=== PATIENT | female | born 1945 | race Caucasian/White ===

== ENCOUNTER → 2016-03-04 | Outpatient (CLI) | payer MEDICARE, OTHER ==
[2015-11-04 10:15] VITALS: BP 135/57
[~2016-03-04] MED LIST: LEVO100T5 PO; METF500T4 PO; THYR30TA PO
[2016-03-04 09:08] LABS: ALBUMIN 3.6 g/dL (3.4-5.0); DIRECT BILIRUBIN 0.2 mg/dL (0.0-0.2); TOTAL BILIRUBIN 0.4 mg/dL (0.2-1.0); TOTAL PROTEIN 7.2 g/dL (6.4-8.2)
== END | disposition home or self-care (01) ==
LOC: LAB 08:03
PROVIDERS: ATTEND Internal Medicine Cardiovascular Disease
DX: E78.2 Mixed hyperlipidemia (principal)
CPT/HCPCS: 36415; 80061; 80076

== ENCOUNTER → 2016-07-09 | Outpatient (CLI) | payer MEDICARE, OTHER ==
[2015-11-04 10:15] VITALS: BP 135/57
[2016-07-09 08:11] LABS: ALBUMIN 3.5 g/dL (3.4-5.0); DIRECT BILIRUBIN 0.1 mg/dL (0.0-0.2); TOTAL BILIRUBIN 0.4 mg/dL (0.2-1.0); TOTAL PROTEIN 7.3 g/dL (6.4-8.2)
== END | disposition home or self-care (01) ==
LOC: LAB 07:30
PROVIDERS: ATTEND Internal Medicine Cardiovascular Disease
DX: E78.2 Mixed hyperlipidemia (principal)
CPT/HCPCS: 36415; 80061; 80076

== ENCOUNTER → 2016-07-30 | Outpatient (CLI) | payer MEDICARE, OTHER ==
[2015-11-04 10:15] VITALS: BP 135/57
[2016-07-30 09:13] LABS: BASO # 0.1 x10^3/uL (0.0-0.2); BASO % 1 % (0-3); EOS # 0.2 x10^3/uL (0.0-0.7); EOS % 3 % (0-3); HEMATOCRIT 48.3 % (36.0-47.0); HEMOGLOBIN 16.2 g/dL (12.0-15.5); LYMPH # 3.2 x10^3/uL (1.0-4.8); LYMPH % 47 % (24-48); MEAN CORPUSCULAR HEMOGLOBIN 28 pg (25-35); MEAN CORPUSCULAR HGB CONC 33 g/dL (31-37); MEAN CORPUSCULAR VOLUME 82 fL (79-100); MONO # 0.5 x10^3/uL (0.0-1.1); MONO % 7 % (0-9); NEUT # 2.8 x10^3uL (1.8-7.7); NEUT % 42 % (31-73); PLATELET COUNT 286 x10^3/uL (140-400); RED BLOOD COUNT 5.87 x10^6/uL (3.50-5.40); RED CELL DISTRIBUTION WIDTH 14.2 % (11.5-14.5); WHITE BLOOD COUNT 6.7 x10^3/uL (4.0-11.0)
[2016-07-30 09:33] LABS: ALBUMIN 3.9 g/dL (3.4-5.0); CALCIUM 9.3 mg/dL (8.5-10.1); CREATININE 0.8 mg/dL (0.6-1.0); GFR 71.3; POTASSIUM 4.2 mmol/L (3.5-5.1); TOTAL BILIRUBIN 0.6 mg/dL (0.2-1.0); TOTAL PROTEIN 7.8 g/dL (6.4-8.2)
[2016-07-30 18:07] LABS: DHEA SO4 54.1 ug/dL (20.4-186.6); FSH 21.8 mIU/mL (.); PROGESTERONE 1.5 ng/mL (.); TESTOSTERONE TOTAL 137 ng/dL (3-41)
[2016-07-30 21:08] LABS: FREE T4 1.5 ng/dL (0.76-1.46); THYROID STIM HORMONE (TSH) 0.014 uIU/mL (0.358-3.740)
== END | disposition home or self-care (01) ==
LOC: LAB 07:37
PROVIDERS: ATTEND Family Medicine
DX: E28.39 Other primary ovarian failure (principal); E34.9 Endocrine disorder, unspecified; E03.9 Hypothyroidism, unspecified; E78.5 Hyperlipidemia, unspecified; N95.1 Menopausal and female climacteric states; E27.40 Unspecified adrenocortical insufficiency; E55.9 Vitamin D deficiency, unspecified; E53.8 Deficiency of other specified B group vitamins; R53.83 Other fatigue; Z90.710 Acquired absence of both cervix and uterus
CPT/HCPCS: 36415; 80053; 80061; 82306; 82627; 82670; 83001; 84144; 84403; 84439; 84443; 84481; 85027

== ENCOUNTER 2016-09-03 14:13 | Emergency (ER) | payer MEDICARE, OTHER ==
[2016-09-03 14:20] VITALS: BP 154/70
--- NOTE | 2016-09-03 15:27 | RAD ---
CT of the head without contrast, 09/03/2016: History: Fall, closed head injury The ventricles are within normal limits in size. There is no shift of the midline structures. There is no evidence of acute intracranial hemorrhage or mass effect. There is a small scalp hematoma in the right frontal region. No underlying fracture is identified. IMPRESSION: No acute intracranial abnormality is detected. PQRS Compliance Statement: One or more of the following individualized dose reduction techniques were utilized for this examination: 1. Automated exposure control 2. Adjustment of the mA and/or kV according to patient size 3. Use of iterative reconstruction technique
--- NOTE | 2016-09-03 15:41 | PHYS DOC ---
Past History Past Medical History: Hypothyroid Past Surgical History: No Surgical History Alcohol Use: Occasionally Drug Use: None Adult General Chief Complaint Chief Complaint: MECHANICAL FALL HPI HPI Patient is a 70 year old female who presents with complaint of head injury. Patient states that she slipped and fell in front of her home on concrete immediately prior to arrival. Patient denied any lightheadedness or dizziness that caused her to fall. Patient states that she did not lose consciousness and was able to ambulate after her fall. Patient complains of throbbing localized pain to the right side of her forehead were she struck her head on the ground. Patient also states that she has abrasions to both hands and knees. Patient denies any global headache, nausea, and patient reportedly had no episodes of confusion or memory loss. The patient states that she is not currently on blood thinners but has been off of Xarelto therapy for more than a week. Patient denies any other injuries at this time. Patient rates her discomfort as 4 out of 10. Review of Systems Review of Systems Constitutional: Denies fever or chills [] Eyes: Denies change in visual acuity, redness, or eye pain [] HENT: Head injury, denies nasal congestion or sore throat [] Respiratory: Denies cough or shortness of breath [] Cardiovascular: No additional information not addressed in HPI [] GI: Denies abdominal pain, nausea, vomiting, bloody stools or diarrhea [] : Denies dysuria or hematuria [] Musculoskeletal: Abrasions to bilateral hands and knees [] Integument: Denies rash or skin lesions [] Neurologic: Denies headache, focal weakness or sensory changes [] Allergies Allergies Allergies Coded Allergies Type Severity Reaction Last Updated Verified doxycycline Allergy Intermediate Unknown 11/03/15 Yes Sulfa (Sulfonamide Antibiotics) Adverse Reaction Intermediate 11/03/15 Yes Physical Exam Physical Exam Constitutional: Alert, afebrile, no acute distress. [] HENT: Normocephalic, 3-1/2 cm right forehead hematoma with overlying abrasion, bilateral external ears normal, oropharynx moist, no oral exudates, nose normal. [] Eyes: PERRLA, EOMI, conjunctiva normal, no discharge. [] Neck: Normal range of motion, no tenderness, supple, no stridor. [] Cardiovascular:Heart rate regular rhythm, no murmur [] Lungs & Thorax: Bilateral breath sounds clear to auscultation [] Abdomen: Bowel sounds normal, soft, no tenderness, no masses, no pulsatile masses. [] Skin: Warm, dry, superficial abrasions to the bilateral palmar surfaces and extensor surface of knees bilaterally. [] Back: No tenderness, no CVA tenderness. [] Extremities: No tenderness, no cyanosis, no clubbing, ROM intact, no edema. [] Neurologic: Alert and oriented X 3, normal motor function, normal sensory function, no focal deficits noted. [] Current Patient Data Vital Signs Vital Signs Date Time Temp Pulse Resp B/P (MAP) Pulse Ox O2 Delivery O2 Flow Rate FiO2 09/03/16 14:20 97.8 81 22 95 Room Air EKG EKG Not performed [] Radiology/Procedures Radiology/Procedures [address] [address] IMAGING REPORT Signed PATIENT: HINA CARNES V ACCOUNT: [id number] : 1945 LOCATION: ER AGE: 70 SEX: F EXAM STATUS: REG ER ORD. PHYSICIAN: ANDREY SHELTON MD REASON: fall, closed head injury PROCEDURE: CT HEAD WO CONTRAST CT of the head without contrast, 09/03/2016: History: Fall, closed head injury The ventricles are within normal limits in size. There is no shift of the midline structures. There is no evidence of acute intracranial hemorrhage or mass effect. There is a small scalp hematoma in the right frontal region. No underlying fracture is identified. IMPRESSION: No acute intracranial abnormality is detected. PQRS Compliance Statement: One or more of the following individualized dose reduction techniques were utilized for this examination: 1. Automated exposure control 2. Adjustment of the mA and/or kV according to patient size 3. Use of iterative reconstruction technique DICTATED AND SIGNED BY: MAYANK HAYDEN MD DATE: 09/03/16 1523 CC: ANDREY SHELTON MD; LETICIA RAYA MD ~ [] Course & Med Decision Making Course & Med Decision Making Pertinent Labs and Imaging studies reviewed. (See chart for details) Patient's head CT was negative for intracranial bleeding. Advised continued use of cold compresses to reduce swelling on patient's scalp. Recommended use of Tylenol as needed for discomfort. Advised follow-up with primary doctor in 5 days for reevaluation and return to emergency department for any worsening symptoms. Patient voiced understanding and in agreement with treatment plan. Dragon Disclaimer Dragon Disclaimer This chart was dictated in whole or in part using Voice Recognition software in a busy, high-work load, and often noisy Emergency Department environment. It may contain unintended and wholly unrecognized errors or omissions. Departure Departure: Impression: Primary Impression: Closed head injury Additional Impression: Multiple abrasions Disposition: HOME, SELF-CARE Condition: IMPROVED Referrals: LETICIA RAYA MD (PCP) Patient Instructions: Head Injury, Adult Additional Instructions: Follow-up in 5 days with primary doctor for reevaluation. Return to emergency department for any worsening symptoms. Problem Qualifiers Primary Impression: Closed head injury Encounter type: initial encounter Qualified Codes: S09.90XA - Unspecified injury of head, initial encounter ANDREY SHELTON MD Sep 03, 2016 15:41
== END 2016-09-03 15:58 | disposition home or self-care (01) ==
LOC: ER 14:13
DX: S09.8XXA Other specified injuries of head, initial encounter (principal); S60.512A Abrasion of left hand, initial encounter; S60.511A Abrasion of right hand, initial encounter; S80.212A Abrasion, left knee, initial encounter; S80.211A Abrasion, right knee, initial encounter; E03.9 Hypothyroidism, unspecified; Z88.2 Allergy status to sulfonamides; Z88.1 Allergy status to other antibiotic agents; W01.198A Fall on same level from slipping, tripping and stumbling with subsequent striking against other object, initial encounter; Y93.89 Activity, other specified; Y99.8 Other external cause status; Y92.89 Other specified places as the place of occurrence of the external cause
CPT/HCPCS: 70450; 99284-25

== ENCOUNTER 2016-10-17 12:12 | Emergency (ER) | payer MEDICARE, OTHER ==
[~2016-10-17] VITALS: Ht 162.6 cm; Wt 70.3 kg
--- NOTE | 2016-10-17 14:20 | RAD ---
CT head without contrast 10/17/2016 Clinical indication: Fall, head contusion. Comparison: CT head 09/03/2016. Technique: Multiple CT images of the head were obtained without contrast according to standard protocol. RS Compliance Statement: One or more of the following individualized dose reduction techniques were utilized for this examination: 1. Automated exposure control 2. Adjustment of the mA and/or kV according to patient size 3. Use of iterative reconstruction technique Findings: Head: Ventricles and subarachnoid spaces are normal in size and configuration. No acute intracranial hemorrhage or extra-axial fluid collection. The mooney-white matter interfaces are maintained. The basal cisterns are patent. No midline shift. There is focal anterior right frontal scalp contusion. Mastoid air cells and visualized paranasal sinuses are well aerated. Impression: Anterior right frontal scalp contusion with no acute intracranial hemorrhage or mass effect.
--- NOTE | 2016-10-17 14:39 | RAD ---
Right shoulder radiograph 3 views 10/17/2016 Clinical indication: Right shoulder pain status post fall. Comparison: None. Findings: No acute fracture or dislocation. Soft tissues are grossly unremarkable. Impression: No acute osseous abnormality.
--- NOTE | 2016-10-17 14:44 | ED.ADGEN ---
Past History Past Medical History: A-Fib, Diabetes, Hypothyroid Past Surgical History: Hysterectomy Alcohol Use: Occasionally Drug Use: None Adult General HPI HPI Patient is a 71-year-old woman, history of type 2 diabetes mellitus, hypertension, hypothyroidism, who presents to the emergency department after mechanical fall. Patient states that she was walking downstairs at her [employer] carrying a large laundry basket when she tripped and fell, striking her left knee, right hand, and face and right forehead against a concrete parking barrier. No neck pain. She states this occurred about an hour prior to arrival. She is complaining of headache located at the spot where she has a contusion, denies any neck pain, any nausea or vomiting, any weakness, numbness, tingling, states she was ambulating on difficulty at the scene, and is not limping. She denies any preceding symptoms, chest pain, shortness breath, no other concerning symptoms. She states she does not take any anticoagulants including aspirin. C-collar placed upon arrival to the emergency department based on mechanism of action and age. Review of Systems Review of Systems Constitutional: Denies fever or chills [] Eyes: Denies change in visual acuity, redness, or eye pain [] HENT: Denies nasal congestion or sore throat [] Respiratory: Denies cough or shortness of breath [] Cardiovascular: No additional information not addressed in HPI [] GI: Denies abdominal pain, nausea, vomiting, bloody stools or diarrhea [] : Denies dysuria or hematuria [] Musculoskeletal: Denies back pain or joint pain [] Integument: Denies rash or skin lesions [] Neurologic: Denies focal weakness or sensory changes, complaining of headache and pain or she has a contusion on the right forehead. [] Endocrine: Denies polyuria or polydipsia [] Allergies Allergies Allergies Coded Allergies Type Severity Reaction Last Updated Verified doxycycline Allergy Intermediate Unknown 11/03/15 Yes Sulfa (Sulfonamide Antibiotics) Adverse Reaction Intermediate 11/03/15 Yes Physical Exam Physical Exam Constitutional: Well developed, well nourished, no acute distress, non-toxic appearance. [] HENT: Normocephalic, patient with contusion and abrasion noted over the right upper forehead, no laceration. Bilateral external ears normal, no hemotympanum , no septal hematoma, patient has small abrasion noted to the left upper lip, with normal dentition, without evidence of dental looseness dental trauma, bite test is normal, oropharynx moist, no oral exudates, nose normal. [] Eyes: PERRLA, EOMI, conjunctiva normal, no discharge. [] Neck: Normal range of motion, no tenderness, supple, no stridor. C-collar was in place, patient's car was cleared in the ED. [] Cardiovascular:Heart rate regular rhythm, no murmur, S1, S2, rubs or gallops. [] Lungs & Thorax: Bilateral breath sounds clear to auscultation, no wheezing, rhonchi, rales. No chest or crepitus or tenderness. [] Abdomen: Bowel sounds normal, soft, no tenderness, no masses, no pulsatile masses. [] Skin: Warm, dry, no erythema, no rash. [] Back: No tenderness, no CVA tenderness. [] Extremities: Patient with full range of motion, with small abrasion noted over the patella of the left knee, patient is full range of motion without difficulty , and no bony point tenderness or crepitus. A contusion noted on the right upper extremity, with full range of motion that is painless, patient complaining of pain with extension and flexion of the right shoulder, with tenderness palpation in the glenoid fossa and anterior aspect of the humeral head, no crepitus or deformity identified, no cyanosis, no clubbing, ROM intact , no edema. Negative Homans sign. [] Neurologic: Alert and oriented X 3, normal motor function, normal sensory function, no focal deficits noted. [] Psychologic: Affect normal, judgement normal, mood normal. [] Current Patient Data Vital Signs Vital Signs Date Time Temp Pulse Resp B/P (MAP) Pulse Ox O2 Delivery O2 Flow Rate FiO2 10/17/16 14:54 60 20 179/75 (109) 97 Room Air 10/17/16 12:51 97.9 EKG EKG Not indicated.[] Radiology/Procedures Radiology/Procedures [][address] [address] IMAGING REPORT Signed PATIENT: HINA HERNDON ACCOUNT: [id number] : 1945 LOCATION: ER AGE: 71 SEX: F EXAM STATUS: REG ER ORD. PHYSICIAN: CIELO JENKINS DO REASON: Pain s/p fall PROCEDURE: SHOULDER 2+V RIGHT Right shoulder radiograph 3 views 10/17/2016 Clinical indication: Right shoulder pain status post fall. Comparison: None. Findings: No acute fracture or dislocation. Soft tissues are grossly unremarkable. Impression: No acute osseous abnormality. DICTATED AND SIGNED BY: LISA CARRILLO MD DATE: 10/17/16 1435 CC: CIELO JENKINS DO; LETICIA RAYA MD ~ Impressions: [place] [address] IMAGING REPORT Signed PATIENT: HINA HERNDON ACCOUNT: [id number] : 1945 LOCATION: ER AGE: 71 SEX: F EXAM STATUS: REG ER ORD. PHYSICIAN: CIELO JENKINS DO REASON: Fall/head contusion PROCEDURE: CT HEAD WO CONTRAST CT head without contrast 10/17/2016 Clinical indication: Fall, head contusion. Comparison: CT head 09/03/2016. Technique: Multiple CT images of the head were obtained without contrast according to standard protocol. PQRS Compliance Statement: One or more of the following individualized dose reduction techniques were utilized for this examination: 1. Automated exposure control 2. Adjustment of the mA and/or kV according to patient size 3. Use of iterative reconstruction technique Findings: Head: Ventricles and subarachnoid spaces are normal in size and configuration. No acute intracranial hemorrhage or extra-axial fluid collection. The mooney-white matter interfaces are maintained. The basal cisterns are patent. No midline shift. There is focal anterior right frontal scalp contusion. Mastoid air cells and visualized paranasal sinuses are well aerated. Impression: Anterior right frontal scalp contusion with no acute intracranial hemorrhage or mass effect. DICTATED AND SIGNED BY: LISA CARRILLO MD DATE: 10/17/16 1408 CC: CIELO JENKINS DO; LETICIA RAYA MD ~ Course & Med Decision Making Course & Med Decision Making Pertinent Labs and Imaging studies reviewed. (See chart for details) Discussion at bedside regarding imaging of the head and neck, patient has no neck tenderness, full range of motion, c-collar was cleared in the ED. After discussion about the, will proceed with CT imaging of the head rule out occult bleeding or fracture. Patient does not have any facial injuries or facial discomfort aside from mild abrasion of the upper lip, that would warrant additional imaging of the face. Patient is in agreement with this plan. CT imaging of the head was unremarkable. Patient is also complaining of pain in the right shoulder, x-ray and imaging was obtained. Imaging not reveal any evidence of acute abnormalities. Patient was ambulating without difficulty in the ED. Did discuss with patient concerning symptoms that prompt return to the ED, use [id number] medications, ice pack was applied in the ED to the frontal hematoma. Patient discharged home in stable condition with significant other, with plan and precautions as above. Final Impression Final Impression [] Problems: Dragon Disclaimer Dragon Disclaimer This electronic medical record was generated, in whole or in part, using a voice recognition dictation system. Departure: Impression: Primary Impression: Closed head injury Additional Impression: Contusion of left knee Disposition: 01 HOME, SELF-CARE Condition: IMPROVED CIELO JENKINS DO Oct 17, 2016 14:44
[2016-10-17 14:54] VITALS: BP 179/75
== END 2016-10-17 14:52 | disposition home or self-care (01) ==
LOC: ER 12:12
DX: S09.90XA Unspecified injury of head, initial encounter (principal); S80.02XA Contusion of left knee, initial encounter; S60.221A Contusion of right hand, initial encounter; I48.91 Unspecified atrial fibrillation; E11.9 Type 2 diabetes mellitus without complications; E03.9 Hypothyroidism, unspecified; Z88.1 Allergy status to other antibiotic agents; Z88.2 Allergy status to sulfonamides; W01.198A Fall on same level from slipping, tripping and stumbling with subsequent striking against other object, initial encounter; Y93.01 Activity, walking, marching and hiking; Y99.8 Other external cause status; Y92.89 Other specified places as the place of occurrence of the external cause
CPT/HCPCS: 70450; 73030; 99284-25

== ENCOUNTER → 2017-01-28 | Outpatient (CLI) | payer MEDICARE, OTHER ==
[2017-01-28 10:56] LABS: BASO % 1 % (0-3); EOS # 0.2 x10^3/uL (0.0-0.7); EOS % 4 % (0-3); HEMATOCRIT 41.7 % (36.0-47.0); HEMOGLOBIN 14.2 g/dL (12.0-15.5); LYMPH # 2.6 x10^3/uL (1.0-4.8); LYMPH % 39 % (24-48); MEAN CORPUSCULAR HEMOGLOBIN 29 pg (25-35); MEAN CORPUSCULAR HGB CONC 34 g/dL (31-37); MEAN CORPUSCULAR VOLUME 85 fL (79-100); MONO # 0.5 x10^3/uL (0.0-1.1); MONO % 7 % (0-9); NEUT # 3.2 x10^3uL (1.8-7.7); NEUT % 49 % (31-73); PLATELET COUNT 294 x10^3/uL (140-400); RED BLOOD COUNT 4.91 x10^6/uL (3.50-5.40); RED CELL DISTRIBUTION WIDTH 13.7 % (11.5-14.5); WHITE BLOOD COUNT 6.5 x10^3/uL (4.0-11.0)
[2017-01-28 10:58] LABS: ALBUMIN 3.7 g/dL (3.4-5.0); ALBUMIN/GLOBULIN RATIO 1.1 (1.0-1.7); CALCIUM 9.3 mg/dL (8.5-10.1); CREATININE 0.7 mg/dL (0.6-1.0); TOTAL BILIRUBIN 0.3 mg/dL (0.2-1.0); TOTAL PROTEIN 7.1 g/dL (6.4-8.2)
[2017-01-28 11:12] LABS: C REACTIVE PROTEIN 3.9 mg/L (0-3.3)
[2017-01-28 14:43] LABS: FREE T4 1.29 ng/dL (0.76-1.46); THYROID STIM HORMONE (TSH) 0.028 uIU/mL (0.358-3.740)
[2017-01-28 18:07] LABS: ESTRADIOL LEVEL 63.5 pg/mL (.); FSH 21.1 mIU/mL (.); PROGESTERONE 1.1 ng/mL (.); TESTOSTERONE TOTAL 184 ng/dL (3-41)
== END | disposition home or self-care (01) ==
LOC: LAB 07:29
PROVIDERS: ATTEND Family Medicine
DX: E03.9 Hypothyroidism, unspecified (principal); E28.39 Other primary ovarian failure; E27.40 Unspecified adrenocortical insufficiency; E53.8 Deficiency of other specified B group vitamins; E55.9 Vitamin D deficiency, unspecified; R53.83 Other fatigue; Z90.711 Acquired absence of uterus with remaining cervical stump
CPT/HCPCS: 36415; 80053; 80061; 82306; 82607; 82670; 83001; 84144; 84403; 84439; 84443; 84481; 85025; 86140

== ENCOUNTER → 2017-11-04 | Outpatient (CLI) | payer MEDICARE, OTHER ==
[~2017-11-04] MED LIST changes: +METF500T16 PO; -METF500T4 PO
[2017-11-04 11:50] LABS: BASO # 0.1 x10^3/uL (0.0-0.2); BASO % 1 % (0-3); EOS # 0.2 x10^3/uL (0.0-0.7); EOS % 3 % (0-3); HEMATOCRIT 45.5 % (36.0-47.0); HEMOGLOBIN 15.1 g/dL (12.0-15.5); LYMPH # 3.2 x10^3/uL (1.0-4.8); LYMPH % 42 % (24-48); MEAN CORPUSCULAR HEMOGLOBIN 27 pg (25-35); MEAN CORPUSCULAR HGB CONC 33 g/dL (31-37); MEAN CORPUSCULAR VOLUME 81 fL (79-100); MONO # 0.5 x10^3/uL (0.0-1.1); MONO % 7 % (0-9); NEUT # 3.6 x10^3uL (1.8-7.7); NEUT % 47 % (31-73); PLATELET COUNT 308 x10^3/uL (140-400); RED BLOOD COUNT 5.65 x10^6/uL (3.50-5.40); RED CELL DISTRIBUTION WIDTH 14.4 % (11.5-14.5); WHITE BLOOD COUNT 7.6 x10^3/uL (4.0-11.0)
[2017-11-04 12:05] LABS: ALBUMIN 3.6 g/dL (3.4-5.0); CALCIUM 9.1 mg/dL (8.5-10.1); CREATININE 0.8 mg/dL (0.6-1.0); GFR 70.9; POTASSIUM 3.9 mmol/L (3.5-5.1); TOTAL BILIRUBIN 0.5 mg/dL (0.2-1.0); TOTAL PROTEIN 7.3 g/dL (6.4-8.2)
[2017-11-04 15:20] LABS: FREE T4 1.48 ng/dL (0.76-1.46)
[2017-11-04 15:21] LABS: THYROID STIM HORMONE (TSH) 0.04 uIU/mL (0.358-3.740)
[2017-11-05 02:11] LABS: ESTRADIOL LEVEL 70.6 pg/mL (.)
[2017-11-05 03:07] LABS: DHEA SO4 89.1 ug/dL (20.4-186.6); TESTOSTERONE TOTAL 146 ng/dL (3-41)
[2017-11-06 22:07] LABS: INSULIN GROWTH FAC 95 ng/mL (38-163)
== END | disposition home or self-care (01) ==
LOC: LAB 10:22
PROVIDERS: ATTEND Family Medicine
DX: E28.39 Other primary ovarian failure (principal); E34.9 Endocrine disorder, unspecified; E03.9 Hypothyroidism, unspecified; E27.40 Unspecified adrenocortical insufficiency; E78.5 Hyperlipidemia, unspecified; N95.1 Menopausal and female climacteric states; I10 Essential (primary) hypertension; E55.9 Vitamin D deficiency, unspecified; E53.8 Deficiency of other specified B group vitamins; E78.2 Mixed hyperlipidemia; E11.9 Type 2 diabetes mellitus without complications; R63.5 Abnormal weight gain; R53.83 Other fatigue; Z90.710 Acquired absence of both cervix and uterus; Z88.2 Allergy status to sulfonamides; Z88.1 Allergy status to other antibiotic agents; Z80.6 Family history of leukemia; Z82.49 Family history of ischemic heart disease and other diseases of the circulatory system
CPT/HCPCS: 36415; 80053; 80061; 82607; 82627; 82670; 84144; 84305; 84403; 84439; 84443; 84481; 85025

== ENCOUNTER 2018-02-12 12:23 | Emergency (ER) | payer MEDICARE, OTHER ==
[~2018-02-12] VITALS: Ht 163.8 cm; Wt 70.9 kg
[2018-02-12 13:04] LABS: BASO # 0.1 x10^3/uL (0.0-0.2); BASO % 1 % (0-3); EOS # 0.2 x10^3/uL (0.0-0.7); EOS % 1 % (0-3); HEMATOCRIT 46.6 % (36.0-47.0); HEMOGLOBIN 15.7 g/dL (12.0-15.5); LYMPH # 3.6 x10^3/uL (1.0-4.8); LYMPH % 24 % (24-48); MEAN CORPUSCULAR HEMOGLOBIN 28 pg (25-35); MEAN CORPUSCULAR HGB CONC 34 g/dL (31-37); MEAN CORPUSCULAR VOLUME 82 fL (79-100); MONO # 0.9 x10^3/uL (0.0-1.1); MONO % 6 % (0-9); NEUT # 10.4 x10^3uL (1.8-7.7); NEUT % 69 % (31-73); PLATELET COUNT 399 x10^3/uL (140-400); RED BLOOD COUNT 5.72 x10^6/uL (3.50-5.40); RED CELL DISTRIBUTION WIDTH 14.2 % (11.5-14.5); WHITE BLOOD COUNT 15.2 x10^3/uL (4.0-11.0)
[2018-02-12 13:14] LABS: BACTERIA,URINE FEW /HPF (0-FEW); BILIRUBIN,URINE NEG (NEG); CLARITY,URINE CLOUDY; COLOR,URINE AMBER; GLUCOSE,URINE NEG (NEG); NITRITE,URINE NEG (NEG); SQUAMOUS EPITHELIAL CELL,UR MOD /LPF; UROBILINOGEN,URINE 0.2 mg/dL (0.2 mg/dL); WBC,URINE >40 /HPF (0-4)
--- NOTE | 2018-02-12 13:17 | RAD ---
PROCEDURE: PORTABLE CHEST 1V CLINICAL INDICATION: Tachycardia COMPARISON: None FINDINGS: No pneumothorax identified. Cardiac and mediastinal contours unremarkable. No pulmonary consolidation or acute airspace disease. No acute osseous abnormalities identified. IMPRESSION: No pulmonary consolidation or acute airspace disease. Electronically signed by: Goran Mercado DO (02/12/2018 1:13 PM) [facility]
[2018-02-12 13:24] LABS: CALCIUM 9.9 mg/dL (8.5-10.1); GFR 54.8; POTASSIUM 3.8 mmol/L (3.5-5.1); TOTAL BILIRUBIN 0.4 mg/dL (0.2-1.0); TOTAL PROTEIN 8.1 g/dL (6.4-8.2)
[2018-02-12 13:47] LABS: % BANDS 1 % (0-9); % EOS 1 % (0-5); % LYMPHS 14 % (24-48); % MONOS 5 % (0-10); % SEGS 64 % (35-66)
[2018-02-12 13:49] LABS: PLT ESTIMATE INCREASED (ADEQUATE)
[2018-02-12] MEDS: IV NORMAL SALINE 1,000ML 1,000 ML IV SCH (14:18)
--- NOTE | 2018-02-12 14:18 | PHYS DOC ---
Past History Past Medical History: A-Fib, Diabetes, Hypothyroid Past Surgical History: Hysterectomy, Other Alcohol Use: Rarely Drug Use: None Adult General Chief Complaint Chief Complaint: PAIN ON URINATION [facility] HPI Patient is 72-year-old female who presents with complaint of painful urination as well as feeling lightheadedness, generalized weakness and diarrhea for the last few days. She denies any chest pain or shortness of breath. She states that initially she had drank a lot of water and cranberry juice and the burning with urination had cleared up for a day but has since returned. She denies any back pain or abdominal pain. She also denies any nausea or vomiting. Review of Systems Review of Systems Constitutional: Denies fever or chills [] Respiratory: Denies cough or shortness of breath [] Cardiovascular: No additional information not addressed in HPI [] GI: Denies abdominal pain, nausea or vomiting. Complains of diarrhea. [] Musculoskeletal: Denies back pain or joint pain [] Integument: Denies rash or skin lesions [] Neurologic: Denies headache, focal weakness or sensory changes [] All other systems were reviewed and found to be within normal limits, except as documented in this note. Current Medications Current Medications Current Medications Medications (Trade) Dose Ordered Sig/Naomie Start Time Stop Time Status Last Admin Dose Admin Ceftriaxone Sodium 1 gm/ Sodium Chloride 50 ml @ 100 mls/hr 1X ONCE 02/12/18 14:00 02/12/18 14:29 UNV Diltiazem HCl (Cardizem Iv Push) 10 mg 1X ONCE 02/12/18 14:00 02/12/18 14:01 UNV Phenazopyridine HCl (Pyridium) 100 mg 1X ONCE 02/12/18 14:00 02/12/18 14:01 UNV Sodium Chloride 1,000 ml @ 1,000 mls/hr Q1H 02/12/18 12:42 02/12/18 13:41 DC Allergies Allergies Allergies Coded Allergies Type Severity Reaction Last Updated Verified doxycycline Allergy Intermediate Unknown 11/03/15 Yes Sulfa (Sulfonamide Antibiotics) Adverse Reaction Intermediate 11/03/15 Yes Physical Exam Physical Exam Constitutional: Well developed, well nourished, no acute distress, non-toxic appearance. [] HENT: Normocephalic, atraumatic, bilateral external ears normal, oropharynx moist, no oral exudates, nose normal. [] Eyes: PERRLA, EOMI, conjunctiva normal, no discharge. [] Neck: Normal range of motion, no tenderness, supple, no stridor. [] Cardiovascular: Tachycardic rate with irregular rhythm [] Lungs & Thorax: Bilateral breath sounds clear to auscultation [] Abdomen: Bowel sounds normal, soft, with mild suprapubic tenderness. [] Skin: Warm, dry, no erythema, no rash. [] Extremities: No tenderness, no cyanosis, no clubbing, ROM intact, no edema. [] Neurologic: Alert and oriented X 3, normal motor function, normal sensory function, no focal deficits noted. [] Current Patient Data Vital Signs Vital Signs Date Time Temp Pulse Resp B/P (MAP) Pulse Ox O2 Delivery O2 Flow Rate FiO2 02/12/18 12:23 97.2 122 20 97 Room Air Lab Results Laboratory Tests Test 02/12/18 12:40 02/12/18 12:50 Urine Collection Type Clean catch Urine Color Simin Urine Clarity Cloudy Urine pH 5.5 Urine Specific [place] >=1.030 Urine Protein 30 mg/dl (NEG-TRACE) Urine Glucose (UA) Neg mg/dL (NEG) Urine Ketones (Stick) Trace mg/dL (NEG) Urine Blood Mod (NEG) Urine Nitrite Neg (NEG) Urine Bilirubin Neg (NEG) Urine Urobilinogen Dipstick 0.2 mg/dL (0.2 mg/dL) Urine Leukocyte Esterase Small (NEG) Urine RBC 6-10 /HPF (0-2) Urine WBC >40 /HPF (0-4) Urine Squamous Epithelial Cells Mod /LPF Urine Bacteria Few /HPF (0-FEW) White Blood Count 15.2 x10^3/uL (4.0-11.0) H Red Blood Count 5.72 x10^6/uL (3.50-5.40) H Hemoglobin 15.7 g/dL (12.0-15.5) H Hematocrit 46.6 % (36.0-47.0) Mean Corpuscular Volume 82 fL (79-100) Mean Corpuscular Hemoglobin 28 pg (25-35) Mean Corpuscular Hemoglobin Concent 34 g/dL (31-37) Red Cell Distribution Width 14.2 % (11.5-14.5) Platelet Count 399 x10^3/uL (140-400) Neutrophils (%) (Auto) 69 % (31-73) Lymphocytes (%) (Auto) 24 % (24-48) Monocytes (%) (Auto) 6 % (0-9) Eosinophils (%) (Auto) 1 % (0-3) Basophils (%) (Auto) 1 % (0-3) Neutrophils # (Auto) 10.4 x10^3uL (1.8-7.7) H Lymphocytes # (Auto) 3.6 x10^3/uL (1.0-4.8) Monocytes # (Auto) 0.9 x10^3/uL (0.0-1.1) Eosinophils # (Auto) 0.2 x10^3/uL (0.0-0.7) Basophils # (Auto) 0.1 x10^3/uL (0.0-0.2) Segmented Neutrophils % 64 % (35-66) Band Neutrophils % 1 % (0-9) Lymphocytes % 14 % (24-48) L Monocytes % 5 % (0-10) Eosinophils % 1 % (0-5) Platelet Estimate Increased (ADEQUATE) Sodium Level 140 mmol/L (136-145) Potassium Level 3.8 mmol/L (3.5-5.1) Chloride Level 101 mmol/L (98-107) Carbon Dioxide Level 29 mmol/L (21-32) Anion Gap 10 (6-14) Blood Urea Nitrogen 12 mg/dL (7-20) Creatinine 1.0 mg/dL (0.6-1.0) Estimated GFR (Cockcroft-Gault) 54.8 BUN/Creatinine Ratio 12 (6-20) Glucose Level 136 mg/dL (70-99) H Calcium Level 9.9 mg/dL (8.5-10.1) Total Bilirubin 0.4 mg/dL (0.2-1.0) Aspartate Amino Transferase (AST) 25 U/L (15-37) Alanine Aminotransferase (ALT) 39 U/L (14-59) Alkaline Phosphatase 123 U/L (46-116) H Troponin I Quantitative < 0.017 ng/mL (0-0.055) Total Protein 8.1 g/dL (6.4-8.2) Albumin 4.0 g/dL (3.4-5.0) Albumin/Globulin Ratio 1.0 (1.0-1.7) EKG EKG EKG demonstrates what appears to be atrial flutter with rate of 140.[] Radiology/Procedures Radiology/Procedures [] Impressions: Chest x-ray demonstrates no acute process. Course & Med Decision Making Course & Med Decision Making Pertinent Labs and Imaging studies reviewed. (See chart for details) [] Dragon Disclaimer Dragon Disclaimer This electronic medical record was generated, in whole or in part, using a voice recognition dictation system. Departure Departure: Impression: Primary Impression: Urinary tract infection Additional Impression: Diarrhea Disposition: HOME, SELF-CARE Condition: STABLE Referrals: LETICIA RAYA MD (PCP) Patient Instructions: Diarrhea, Urinary Tract Infection Scripts Diphenoxylate Hcl/Atropine (LOMOTIL TABLET) 1 Each Tablet 1 TAB PO TID PRN for DIARRHEA, #30 TAB Prov: DANIKA ARREDONDO Jr. DO 02/12/18 Nitrofurantoin Monohyd/M-Cryst (MACROBID 100 MG CAPSULE) 100 Mg Capsule 1 CAP PO BID for infection, #14 CAP Prov: DANIKA ARREDONDO Jr. DO 02/12/18 Problem Qualifiers Primary Impression: Urinary tract infection Urinary tract infection type: site unspecified Hematuria presence: without hematuria Qualified Codes: N39.0 - Urinary tract infection, site not specified Additional Impression: Diarrhea Diarrhea type: unspecified type Qualified Codes: R19.7 - Diarrhea, unspecified DANIKA ARREDONDO Jr. DO Feb 12, 2018 14:18
[2018-02-12] MEDS: dilTIAZem 25 MG/5 ML VIAL IVP ONE (14:46)
[2018-02-12] MEDS ORDERED: IV NORMAL SALINE 50ML 50 ML ONE (14:47)
[2018-02-12] MEDS ORDERED: cefTRIAXone SODIUM 1 GM VIAL IV ONE (14:48)
[2018-02-12] MEDS: PHENAZOPYRIDINE 100 MG TABLET. PO ONE (14:52)
[2018-02-12 15:33] VITALS: BP 131/61
[2018-02-12] MEDS ORDERED: DIPH1TAB PO (15:37)
[2018-02-12] MEDS ORDERED: NITR100C62 PO (15:37)
--- NOTE | 2018-02-12 16:54 | EKG ---
[address] [address] Test Date: 2018-02-12 Test Time: 14:49:08 Pat Name: HINA HERNDON Department: Room: Gender: F Nutritionist: VIRAJ : 1945 Requested By: DANIKA ARREDONDO Order Number: [id number] Reading MD: Measurements Intervals [place] Rate: 78 P: 42 [place]: 156 QRS: -3 QRSD: 74 T: 11 QT: 370 QTc: 425 Interpretive Statements SINUS RHYTHM LEFTWARD AXIS S1,S2,S3 PATTERN OTHERWISE NORMAL ECG RI6.01 Unconfirmed report No previous ECG available for comparison
--- NOTE | 2018-02-12 17:02 | EKG ---
[address] [address] Test Date: 2018-02-12 Test Time: 12:51:07 Pat Name: HINA HERNDON Department: Room: Gender: F Butcherette: VIRAJ : 1945 Requested By: DANIKA ARREDONDO Order Number: [id number] Reading MD: Measurements Intervals [place] Rate: 140 P: TN: QRS: 18 QRSD: 72 T: 4 QT: 278 QTc: 428 Interpretive Statements IRREGULAR RHYTHM, NO P-WAVE FOUND R-S TRANSITION ZONE IN V LEADS DISPLACED TO THE LEFT NO SPECIFIC ECG ABNORMALITIES RI6.01 Unconfirmed report No previous ECG available for comparison
[2018-02-13] MEDS ORDERED: METO10TA81 PO (09:14)
[2018-02-13] MEDS ORDERED: ONDA4TAB7 PO (09:14)
== END 2018-02-12 15:45 | disposition home or self-care (01) ==
LOC: ER 12:23
DX: N39.0 Urinary tract infection, site not specified (principal); R19.7 Diarrhea, unspecified; I48.91 Unspecified atrial fibrillation; E11.9 Type 2 diabetes mellitus without complications; E03.9 Hypothyroidism, unspecified; Z88.1 Allergy status to other antibiotic agents; Z88.2 Allergy status to sulfonamides
CPT/HCPCS: 36415; 71045; 80053; 81001; 84484; 85007; 85025; 87086; 93005; 96361; 96365; 99284; J0696; J7030

== ENCOUNTER 2018-02-13 05:44 | Emergency (ER) | payer MEDICARE, OTHER ==
[~2018-02-13] VITALS: Ht 162.6 cm; Wt 70.8 kg
[~2018-02-13 05:44] MED LIST changes: +DIPH1TAB PO; +NITR100C62 PO
--- NOTE | 2018-02-13 06:21 | PHYS DOC ---
Past History Past Medical History: Diabetes, Hypothyroid Past Surgical History: Hysterectomy, Other Alcohol Use: None Drug Use: None Adult General Chief Complaint Chief Complaint: [facility]USE[facility]ITING[facility] HPI Patient is a 72-year-old female who presents with complaint of nausea with vomiting and diarrhea. Patient was seen here yesterday and was treated for diarrhea and a urinary tract infection. As of yesterday, she had no nausea or vomiting. She states that this morning when she got up that she had several episodes of vomiting and was concerned that she might get dehydrated. She does admit to some abdominal cramping but states it's mild and only seems to come around when she is going to have diarrhea. She denies any chest pain or shortness of breath. She also denies any fever. Review of Systems Review of Systems Constitutional: Denies fever or chills [] Respiratory: Denies cough or shortness of breath [] Cardiovascular: No additional information not addressed in HPI [] GI: Complains of abdominal cramping with nausea, vomiting and diarrhea [] Neurologic: Denies headache, focal weakness or sensory changes [] All other systems were reviewed and found to be within normal limits, except as documented in this note. Allergies Allergies Allergies Coded Allergies Type Severity Reaction Last Updated Verified doxycycline Allergy Intermediate Unknown 11/03/15 Yes Sulfa (Sulfonamide Antibiotics) Adverse Reaction Intermediate 11/03/15 Yes Physical Exam Physical Exam Constitutional: Well developed, well nourished, no acute distress, non-toxic appearance. [] HENT: Normocephalic, atraumatic, bilateral external ears normal, oropharynx moist, no oral exudates, nose normal. [] Eyes: PERRLA, EOMI, conjunctiva normal, no discharge. [] Neck: Normal range of motion, no tenderness, supple. [] Cardiovascular: Regular rate and rhythm [] Lungs & Thorax: Bilateral breath sounds clear to auscultation [] Abdomen: Bowel sounds normal, soft. [] Skin: Warm, dry, no erythema, no rash. [] Extremities: No cyanosis, no clubbing, ROM intact, no edema. [] Neurologic: Alert and oriented X 3, normal motor function, normal sensory function, no focal deficits noted. [] Current Patient Data Vital Signs Vital Signs Date Time Temp Pulse Resp B/P (MAP) Pulse Ox O2 Delivery O2 Flow Rate FiO2 02/13/18 05:57 98.0 95 20 95 Room Air EKG EKG [] Radiology/Procedures Radiology/Procedures [] Course & Med Decision Making Course & Med Decision Making Pertinent Labs and Imaging studies reviewed. (See chart for details) [] Dragon Disclaimer Dragon Disclaimer This electronic medical record was generated, in whole or in part, using a voice recognition dictation system. Departure Departure: Impression: Primary Impression: Gastroenteritis Additional Impression: Urinary tract infection Disposition: HOME, SELF-CARE Condition: STABLE Referrals: LETICIA RAYA MD (PCP) Patient Instructions: Urinary Tract Infection, Viral Gastroenteritis Scripts Metoclopramide Hcl (REGLAN) 10 Mg Tablet 1 TAB PO QID PRN for NAUSEA/VOMITING, #12 TAB Prov: DANIKA ARREDONDO Jr. DO 02/13/18 Ondansetron Hcl (ZOFRAN) 4 Mg Tablet 1 TAB PO Q8HRS PRN for NAUSEA/VOMITING, #12 TAB Prov: DANIKA ARREDONDO Jr. DO 02/13/18 Problem Qualifiers Additional Impression: Urinary tract infection Urinary tract infection type: site unspecified Hematuria presence: without hematuria Qualified Codes: N39.0 - Urinary tract infection, site not specified DANIKA ARREDONDO Jr. DO Feb 13, 2018 06:21
[2018-02-13] MEDS ORDERED: IV NORMAL SALINE 1,000ML 1,000 ML IV SCH (07:00)
[2018-02-13] MEDS ORDERED: ONDANSETRON PF 4 MG/2 ML VIAL. IV ONE ×2 (07:00→08:15)
[2018-02-13 07:14] LABS: BASO % 0 % (0-3); EOS # 0.2 x10^3/uL (0.0-0.7); EOS % 1 % (0-3); HEMATOCRIT 41.7 % (36.0-47.0); LYMPH # 0.8 x10^3/uL (1.0-4.8); LYMPH % 7 % (24-48); MEAN CORPUSCULAR HEMOGLOBIN 27 pg (25-35); MEAN CORPUSCULAR HGB CONC 33 g/dL (31-37); MEAN CORPUSCULAR VOLUME 82 fL (79-100); MONO # 0.6 x10^3/uL (0.0-1.1); MONO % 5 % (0-9); NEUT # 10.3 x10^3uL (1.8-7.7); NEUT % 87 % (31-73); PLATELET COUNT 303 x10^3/uL (140-400); RED CELL DISTRIBUTION WIDTH 14.4 % (11.5-14.5); WHITE BLOOD COUNT 11.9 x10^3/uL (4.0-11.0)
[2018-02-13 07:28] LABS: ALBUMIN 3.6 g/dL (3.4-5.0); CALCIUM 9.1 mg/dL (8.5-10.1); CREATININE 0.9 mg/dL (0.6-1.0); GFR 61.9; POTASSIUM 3.9 mmol/L (3.5-5.1); TOTAL BILIRUBIN 0.5 mg/dL (0.2-1.0); TOTAL PROTEIN 7.2 g/dL (6.4-8.2)
[2018-02-13] MEDS ORDERED: IV NORMAL SALINE 50ML 50 ML ONE (07:36)
[2018-02-13] MEDS ORDERED: cefTRIAXone SODIUM 1 GM VIAL IV ONE (07:37)
[2018-02-13] MEDS ORDERED: METOCLOPRAMIDE HCL 10 MG/2 ML VIAL. IV ONE (08:30)
[2018-02-13] MEDS ORDERED: ONDA4TAB7 PO (09:14)
[2018-02-13] MEDS ORDERED: METO10TA81 PO (09:14)
[2018-02-13 09:29] VITALS: BP 124/64
== END 2018-02-13 09:34 | disposition home or self-care (01) ==
LOC: ER 05:44
DX: K52.9 Noninfective gastroenteritis and colitis, unspecified (principal); N39.0 Urinary tract infection, site not specified; E11.9 Type 2 diabetes mellitus without complications; E03.9 Hypothyroidism, unspecified; Z90.710 Acquired absence of both cervix and uterus; Z88.1 Allergy status to other antibiotic agents; Z88.2 Allergy status to sulfonamides
CPT/HCPCS: 36415; 80053; 85025; 96361; 96365; 96375; 96376; 99283; J0696; J2405; J2765; J7030

== ENCOUNTER → 2018-05-09 | Outpatient (CLI) | payer MEDICARE, OTHER ==
[~2018-05-09] MED LIST changes: +METO10TA81 PO; +ONDA4TAB7 PO
[2018-05-09 10:10] LABS: BASO # 0.1 x10^3/uL (0.0-0.2); BASO % 1 % (0-3); EOS # 0.2 x10^3/uL (0.0-0.7); EOS % 3 % (0-3); HEMATOCRIT 47.9 % (36.0-47.0); HEMOGLOBIN 15.7 g/dL (12.0-15.5); LYMPH # 3.3 x10^3/uL (1.0-4.8); LYMPH % 40 % (24-48); MEAN CORPUSCULAR HEMOGLOBIN 26 pg (25-35); MEAN CORPUSCULAR HGB CONC 33 g/dL (31-37); MEAN CORPUSCULAR VOLUME 81 fL (79-100); MONO # 0.5 x10^3/uL (0.0-1.1); MONO % 6 % (0-9); NEUT # 4.3 x10^3uL (1.8-7.7); NEUT % 51 % (31-73); PLATELET COUNT 373 x10^3/uL (140-400); RED BLOOD COUNT 5.94 x10^6/uL (3.50-5.40); RED CELL DISTRIBUTION WIDTH 14.1 % (11.5-14.5); WHITE BLOOD COUNT 8.4 x10^3/uL (4.0-11.0)
[2018-05-09 10:20] LABS: ALBUMIN 3.7 g/dL (3.4-5.0); ALBUMIN/GLOBULIN RATIO 0.9 (1.0-1.7); CALCIUM 9.6 mg/dL (8.5-10.1); CREATININE 0.9 mg/dL (0.6-1.0); GFR 61.9; POTASSIUM 3.9 mmol/L (3.5-5.1); TOTAL BILIRUBIN 0.3 mg/dL (0.2-1.0); TOTAL PROTEIN 7.7 g/dL (6.4-8.2)
[2018-05-09 15:11] LABS: FREE T4 1.18 ng/dL (0.76-1.46); THYROID STIM HORMONE (TSH) 0.176 uIU/mL (0.358-3.740)
[2018-05-09 19:08] LABS: ESTRADIOL LEVEL 26.3 pg/mL (.); PROGESTERONE 3.4 ng/mL (.); TESTOSTERONE TOTAL 50 ng/dL (3-41)
[2018-05-10 09:13] LABS: INSULIN LEVEL 18.3 uIU/mL (2.6-24.9)
== END | disposition home or self-care (01) ==
LOC: LAB 08:36
PROVIDERS: ATTEND Family Medicine
DX: E88.81 Metabolic syndrome and other insulin resistance (principal); E55.9 Vitamin D deficiency, unspecified; E53.8 Deficiency of other specified B group vitamins; E34.9 Endocrine disorder, unspecified; E23.0 Hypopituitarism; E03.9 Hypothyroidism, unspecified; E27.40 Unspecified adrenocortical insufficiency; R63.5 Abnormal weight gain; R53.83 Other fatigue; N95.1 Menopausal and female climacteric states; E11.9 Type 2 diabetes mellitus without complications; E78.5 Hyperlipidemia, unspecified
CPT/HCPCS: 36415; 80053; 80061; 82306; 82607; 82670; 83525; 83698; 84144; 84403; 84439; 84443; 84481; 84482; 85025

== ENCOUNTER → 2018-11-03 | Outpatient (CLI) | payer MEDICARE, OTHER ==
[2018-11-03 09:44] LABS: BASO # 0.1 x10^3/uL (0.0-0.2); BASO % 1 % (0-3); EOS # 0.3 x10^3/uL (0.0-0.7); EOS % 4 % (0-3); HEMATOCRIT 47.5 % (36.0-47.0); LYMPH # 3.4 x10^3/uL (1.0-4.8); LYMPH % 43 % (24-48); MEAN CORPUSCULAR HEMOGLOBIN 29 pg (25-35); MEAN CORPUSCULAR HGB CONC 34 g/dL (31-37); MEAN CORPUSCULAR VOLUME 85 fL (79-100); MONO # 0.6 x10^3/uL (0.0-1.1); MONO % 8 % (0-9); NEUT # 3.6 x10^3uL (1.8-7.7); NEUT % 45 % (31-73); PLATELET COUNT 325 x10^3/uL (140-400); RED BLOOD COUNT 5.61 x10^6/uL (3.50-5.40); RED CELL DISTRIBUTION WIDTH 14.5 % (11.5-14.5)
[2018-11-03 10:05] LABS: ALBUMIN 3.8 g/dL (3.4-5.0); C REACTIVE PROTEIN 3.2 mg/L (0-3.3); CALCIUM 9.6 mg/dL (8.5-10.1); CREATININE 0.9 mg/dL (0.6-1.0); GFR 61.7; POTASSIUM 4.2 mmol/L (3.5-5.1); TOTAL BILIRUBIN 0.5 mg/dL (0.2-1.0); TOTAL PROTEIN 7.7 g/dL (6.4-8.2)
[2018-11-03 14:22] LABS: FREE T4 1.54 ng/dL (0.76-1.46); THYROID STIM HORMONE (TSH) 0.008 uIU/mL (0.358-3.740)
[2018-11-03 18:07] LABS: ESTRADIOL LEVEL 16.6 pg/mL (.); FSH 31.1 mIU/mL (.); PROGESTERONE 3.5 ng/mL (.); TESTOSTERONE TOTAL 72 ng/dL (3-41)
[2018-11-05 22:11] LABS: INSULIN GROWTH FAC 103 ng/mL (37-165)
== END | disposition home or self-care (01) ==
LOC: LAB 07:41
PROVIDERS: ATTEND Family Medicine
DX: E23.0 Hypopituitarism (principal); E34.9 Endocrine disorder, unspecified; E03.9 Hypothyroidism, unspecified; E06.3 Autoimmune thyroiditis; E27.40 Unspecified adrenocortical insufficiency; R53.83 Other fatigue; E78.5 Hyperlipidemia, unspecified; N95.1 Menopausal and female climacteric states; I10 Essential (primary) hypertension; M19.90 Unspecified osteoarthritis, unspecified site; E55.9 Vitamin D deficiency, unspecified; Z90.711 Acquired absence of uterus with remaining cervical stump
CPT/HCPCS: 36415; 80053; 80061; 82306; 82607; 82670; 83001; 83698; 84144; 84305; 84403; 84439; 84443; 84481; 84482; 85025; 86140

== ENCOUNTER → 2019-04-23 | Outpatient (CLI) | payer MEDICARE, OTHER ==
[2019-04-23 09:29] LABS: BASO # 0.1 x10^3/uL (0.0-0.2); BASO % 1 % (0-3); EOS # 0.3 x10^3/uL (0.0-0.7); EOS % 3 % (0-3); HEMATOCRIT 47.9 % (36.0-47.0); HEMOGLOBIN 15.9 g/dL (12.0-15.5); LYMPH # 3.3 x10^3/uL (1.0-4.8); LYMPH % 41 % (24-48); MEAN CORPUSCULAR HEMOGLOBIN 29 pg (25-35); MEAN CORPUSCULAR HGB CONC 33 g/dL (31-37); MEAN CORPUSCULAR VOLUME 87 fL (79-100); MONO # 0.5 x10^3/uL (0.0-1.1); MONO % 6 % (0-9); NEUT % 49 % (31-73); PLATELET COUNT 321 x10^3/uL (140-400); RED BLOOD COUNT 5.53 x10^6/uL (3.50-5.40); WHITE BLOOD COUNT 8.1 x10^3/uL (4.0-11.0)
[2019-04-23 09:41] LABS: ALBUMIN 3.5 g/dL (3.4-5.0); CALCIUM 9.5 mg/dL (8.5-10.1); CREATININE 0.7 mg/dL (0.6-1.0); GFR 82.5; MAGNESIUM 1.8 mg/dL (1.8-2.4); POTASSIUM 4.1 mmol/L (3.5-5.1); TOTAL BILIRUBIN 0.3 mg/dL (0.2-1.0); TOTAL PROTEIN 7.1 g/dL (6.4-8.2)
[2019-04-23 14:23] LABS: FREE T4 1.11 ng/dL (0.76-1.46); THYROID STIM HORMONE (TSH) 1.692 uIU/mL (0.358-3.740)
[2019-04-24 02:07] LABS: ESTRADIOL LEVEL 10.8 pg/mL (.); FSH 34.3 mIU/mL (.); PROGESTERONE 1.9 ng/mL (.); TESTOSTERONE TOTAL 63 ng/dL (3-41)
[2019-04-25 07:09] LABS: INSULIN GROWTH FAC 103 ng/mL (37-165)
== END | disposition home or self-care (01) ==
LOC: LAB 08:11
PROVIDERS: ATTEND Family Medicine
DX: E53.8 Deficiency of other specified B group vitamins (principal); E78.5 Hyperlipidemia, unspecified; E34.9 Endocrine disorder, unspecified; E28.39 Other primary ovarian failure; E88.81 Metabolic syndrome and other insulin resistance; E55.9 Vitamin D deficiency, unspecified; Z90.710 Acquired absence of both cervix and uterus
CPT/HCPCS: 36415; 80053; 82306; 82607; 82670; 83001; 83735; 84144; 84305; 84403; 84439; 84443; 84481; 84482; 85025

== ENCOUNTER → 2019-06-25 | Outpatient (CLI) | payer MEDICARE, OTHER ==
[2019-06-26 01:06] LABS: ESTRADIOL LEVEL 921.4 pg/mL (.); PROGESTERONE 1.3 ng/mL (.); TESTOSTERONE TOTAL 966 ng/dL (3-41)
[2019-06-26 19:52] LABS: FREE T4 1.5 ng/dL (0.76-1.46); THYROID STIM HORMONE (TSH) 0.009 uIU/mL (0.358-3.740)
== END | disposition home or self-care (01) ==
LOC: LAB 15:02
PROVIDERS: ATTEND Family Medicine
DX: E03.9 Hypothyroidism, unspecified (principal); Z90.710 Acquired absence of both cervix and uterus
CPT/HCPCS: 36415; 82670; 84144; 84403; 84439; 84443; 84481; 84482

== ENCOUNTER → 2019-07-19 | Outpatient (CLI) | payer MEDICARE, OTHER ==
[2019-07-20 11:08] LABS: ESTRADIOL LEVEL 63.7 pg/mL (.); TESTOSTERONE TOTAL 38 ng/dL (3-41)
== END ==
LOC: LAB 15:05
PROVIDERS: ATTEND Family Medicine
DX: N95.1 Menopausal and female climacteric states (principal); Z90.710 Acquired absence of both cervix and uterus
CPT/HCPCS: 36415; 82670; 84403

== ENCOUNTER 2019-07-21 06:15 | Emergency (ER) | payer MEDICARE, OTHER ==
[~2019-07-21] VITALS: Ht 162.6 cm; Wt 69.0 kg
--- NOTE | 2019-07-21 07:02 | RAD ---
EXAM: CT HEAD WITHOUT CONTRAST. HISTORY: Headache. TECHNIQUE: Computed tomography of the head was performed without intravenous contrast. One or more of the following individualized dose reduction techniques were utilized for this examination: 1. Automated exposure control. 2. Adjustment of the mA and/or kV according to patient size. 3. Use of iterative reconstruction technique. COMPARISON: 10/17/2016. FINDINGS: There is no intracranial hemorrhage. Bills-white differentiation is preserved. The ventricles are normal in size and position. The visualized paranasal sinuses appear clear. The orbits are unremarkable. The temporal bones are unremarkable. The calvarium reveals no suspicious lesions. IMPRESSION: 1. No acute intracranial findings. Electronically signed by: Clau Oneill MD (07/21/2019 6:59 AM) [facility]
[2019-07-21] MEDS ORDERED: METOCLOPRAMIDE HCL 10 MG/2 ML VIAL. IVP ONE (07:15)
[2019-07-21] MEDS ORDERED: IV NORMAL SALINE 1,000ML 1,000 ML IV ONE (07:15)
[2019-07-21] MEDS ORDERED: KETOROLAC 30 MG/ML VIAL. IVP ONE (07:15)
[2019-07-21] MEDS ORDERED: diphenhydrAMINE 50 MG/ML VIAL IVP ONE (07:15)
--- NOTE | 2019-07-21 07:15 | PHYS DOC ---
Past History Past Medical History: Diabetes, Hypothyroid Past Surgical History: Hysterectomy, Other Alcohol Use: None Drug Use: None General Adult EDM: Chief Complaint: HEADACHE HPI: HPI: 73-year-old female presents with headache. This headache started yesterday around 4 PM. It is on the left frontal area of her head. She further admits that it feels a little hard to concentrate. She states that it feels similar to previous sinus headaches that she has had. The confusion/inability to concentrate also typically happens with her sinus infections in the past. She does not get these very frequently. She rates the pain at a moderate level. She was able to sleep most of the night last night. She denies nausea, vomiting, fever, chills. She is on Xarelto for A. fib. No history of CVA or heart attacks. She has no other complaints at this time. Review of Systems: Review of Systems: Constitutional: Denies fever or chills Eyes: Denies change in visual acuity HENT: Denies nasal congestion or sore throat Respiratory: Denies cough or shortness of breath Cardiovascular: Denies chest pain or edema GI: Denies abdominal pain, nausea, vomiting, bloody stools or diarrhea : Denies dysuria Musculoskeletal: Denies back pain or joint pain Integument: Denies rash Neurologic: Headache. Denies focal weakness or sensory changes Endocrine: Denies polyuria or polydipsia Lymphatic: Denies swollen glands Psychiatric: Denies depression or anxiety Heart Score: Risk Factors: Risk Factors: DM, Current or recent (<one month) smoker, HTN, HLP, family history of CAD, obesity. Risk Scores: Score 0 - 3: 2.5% MACE over next 6 weeks - Discharge Home Score 4 - 6: 20.3% MACE over next 6 weeks - Admit for Clinical Observation Score 7 - 10: 72.7% MACE over next 6 weeks - Early Invasive Strategies Allergies: Allergies: Allergies Coded Allergies Type Severity Reaction Last Updated Verified doxycycline Allergy Intermediate Unknown 11/03/15 Yes Sulfa (Sulfonamide Antibiotics) Adverse Reaction Intermediate 11/03/15 Yes Physical Exam: PE: Constitutional: Well developed, well nourished, no acute distress, non-toxic appearance. [] HENT: Normocephalic, atraumatic, bilateral external ears normal, oropharynx moist, no oral exudates, nose normal. [] Eyes: PERRLA, EOMI, conjunctiva normal, no discharge. [] Neck: Normal range of motion, no tenderness, supple, no stridor. [] Cardiovascular: Heart rate regular rhythm, no murmur [] Lungs & Thorax: Bilateral breath sounds clear to auscultation [] Abdomen: Bowel sounds normal, soft, no tenderness, no masses, no pulsatile masses. [] Skin: Warm, dry, no erythema, no rash. [] Back: No tenderness, no CVA tenderness. [] Extremities: No tenderness, no cyanosis, no clubbing, ROM intact, no edema. [] Neurologic: Alert and oriented X 3, normal motor function, normal sensory function, no focal deficits noted. [] Psychologic: Affect normal, judgement normal, mood normal. [] EKG: EKG: [] Radiology/Procedures: Radiology/Procedures: [] Impressions: EXAM: CT HEAD WITHOUT CONTRAST. HISTORY: Headache. TECHNIQUE: Computed tomography of the head was performed without intravenous contrast. One or more of the following individualized dose reduction techniques were utilized for this examination: 1. Automated exposure control. 2. Adjustment of the mA and/or kV according to patient size. 3. Use of iterative reconstruction technique. COMPARISON: 10/17/2016. FINDINGS: There is no intracranial hemorrhage. Bills-white differentiation is preserved. The ventricles are normal in size and position. The visualized paranasal sinuses appear clear. The orbits are unremarkable. The temporal bones are unremarkable. The calvarium reveals no suspicious lesions. IMPRESSION: 1. No acute intracranial findings. Electronically signed by: Clau Oneill MD (07/21/2019 6:59 AM) [facility] DICTATED AND SIGNED BY: ABDELRAHMAN ONEILL MD DATE: 07/21/19 0659 CC: TAL MANE DO; LETICIA RAYA MD ~ Course & Med Decision Making: Course & Med Decision Making Pertinent Labs and Imaging studies reviewed. (See chart for details) The patient's head CT is negative for acute findings. For her headache I will give her a liter of normal saline, 10 mg Reglan, 25 mg of Benadryl, 30 mg of Toradol. Her labs are essentially unremarkable except for some mild hemoconcentration. Her headache is greatly improved. She would like to go home. She is stable for discharge at this time. [] Martin Disclaimer: Dragon Disclaimer: This electronic medical record was generated, in whole or in part, using a voice recognition dictation system. Departure Departure: Impression: Primary Impression: Headache Qualified Codes: G44.201 - Tension-type headache, unspecified, intractable Disposition: 01 HOME/RESIDENCE PRIOR TO ADM Condition: IMPROVED Referrals: LETICIA RAYA MD (PCP) Patient Instructions: General Headache Without Cause, [id number] TAL MANE DO July 21, 2019 07:15
[2019-07-21 07:24] LABS: BASO # 0.1 x10^3/uL (0.0-0.2); BASO % 1 % (0-3); EOS # 0.2 x10^3/uL (0.0-0.7); EOS % 1 % (0-3); HEMATOCRIT 47.5 % (36.0-47.0); HEMOGLOBIN 16.1 g/dL (12.0-15.5); LYMPH # 3.1 x10^3/uL (1.0-4.8); LYMPH % 26 % (24-48); MEAN CORPUSCULAR HEMOGLOBIN 30 pg (25-35); MEAN CORPUSCULAR HGB CONC 34 g/dL (31-37); MEAN CORPUSCULAR VOLUME 87 fL (79-100); MONO # 0.9 x10^3/uL (0.0-1.1); MONO % 7 % (0-9); NEUT # 7.6 x10^3uL (1.8-7.7); NEUT % 65 % (31-73); PLATELET COUNT 292 x10^3/uL (140-400); RED BLOOD COUNT 5.46 x10^6/uL (3.50-5.40); RED CELL DISTRIBUTION WIDTH 13.1 % (11.5-14.5); WHITE BLOOD COUNT 11.8 x10^3/uL (4.0-11.0)
[2019-07-21 07:33] LABS: CALCIUM 9.3 mg/dL (8.5-10.1); CREATININE 0.8 mg/dL (0.6-1.0); GFR 70.7; POTASSIUM 3.7 mmol/L (3.5-5.1)
[2019-07-21 07:39] LABS: ALBUMIN 3.6 g/dL (3.4-5.0); TOTAL BILIRUBIN 0.5 mg/dL (0.2-1.0); TOTAL PROTEIN 7.2 g/dL (6.4-8.2)
[2019-07-21 08:40] VITALS: BP 140/57
== END 2019-07-21 09:04 | disposition home or self-care (01) ==
LOC: ER 06:15
DX: G44.201 Tension-type headache, unspecified, intractable (principal); I48.91 Unspecified atrial fibrillation; E11.9 Type 2 diabetes mellitus without complications; E03.9 Hypothyroidism, unspecified; Z79.01 Long term (current) use of anticoagulants; Z88.1 Allergy status to other antibiotic agents; Z88.2 Allergy status to sulfonamides
CPT/HCPCS: 36415; 70450; 80053; 85025; 96374; 96375; 99284; J1200; J1885; J2765; J7030

== ENCOUNTER → 2019-10-26 | Outpatient (CLI) | payer MEDICARE, OTHER ==
[2019-10-26 13:13] LABS: BASO % 1 % (0-3); EOS # 0.2 x10^3/uL (0.0-0.7); EOS % 2 % (0-3); HEMATOCRIT 45.6 % (36.0-47.0); HEMOGLOBIN 15.2 g/dL (12.0-15.5); LYMPH # 2.7 x10^3/uL (1.0-4.8); LYMPH % 32 % (24-48); MEAN CORPUSCULAR HEMOGLOBIN 29 pg (25-35); MEAN CORPUSCULAR HGB CONC 33 g/dL (31-37); MEAN CORPUSCULAR VOLUME 88 fL (79-100); MONO # 0.5 x10^3/uL (0.0-1.1); MONO % 6 % (0-9); NEUT % 59 % (31-73); PLATELET COUNT 323 x10^3/uL (140-400); RED BLOOD COUNT 5.19 x10^6/uL (3.50-5.40); WHITE BLOOD COUNT 8.4 x10^3/uL (4.0-11.0)
[2019-10-26 13:44] LABS: ALBUMIN 3.6 g/dL (3.4-5.0); C REACTIVE PROTEIN 4.1 mg/L (0-3.3); CALCIUM 9.5 mg/dL (8.5-10.1); CREATININE 0.7 mg/dL (0.6-1.0); GFR 82.3; POTASSIUM 4.2 mmol/L (3.5-5.1); TOTAL BILIRUBIN 0.4 mg/dL (0.2-1.0); TOTAL PROTEIN 7.3 g/dL (6.4-8.2)
[2019-10-27 00:07] LABS: ESTRADIOL LEVEL 132.9 pg/mL (.); TESTOSTERONE TOTAL 228 ng/dL (3-41)
[2019-10-27 01:07] LABS: FSH 7.7 mIU/mL (.); HEMOGLOBIN A1C 5.7 % (4.8-5.6); PROGESTERONE 3.3 ng/mL (.)
[2019-10-27 09:08] LABS: INSULIN LEVEL 6.4 uIU/mL (2.6-24.9)
[2019-10-27 11:04] LABS: FREE T4 1.07 ng/dL (0.76-1.46); THYROID STIM HORMONE (TSH) 0.689 uIU/mL (0.358-3.740)
== END | disposition home or self-care (01) ==
LOC: LAB 11:08
PROVIDERS: ATTEND Family Medicine
DX: E28.39 Other primary ovarian failure (principal); I10 Essential (primary) hypertension; E34.9 Endocrine disorder, unspecified; E03.9 Hypothyroidism, unspecified; E27.40 Unspecified adrenocortical insufficiency; R53.83 Other fatigue; E78.5 Hyperlipidemia, unspecified; R63.5 Abnormal weight gain; E88.81 Metabolic syndrome and other insulin resistance; E55.9 Vitamin D deficiency, unspecified; E53.8 Deficiency of other specified B group vitamins
CPT/HCPCS: 36415; 80053; 80061; 82306; 82607; 82670; 83001; 83036; 83525; 83698; 84144; 84305; 84403; 84439; 84443; 84481; 84482; 85025; 86140

== ENCOUNTER 2020-03-09 13:11 | Emergency (ER) | payer MEDICARE, OTHER ==
[~2020-03-09] VITALS: Ht 162.6 cm; Wt 67.7 kg
[2020-03-09 13:15] VITALS: BP 123/67
--- NOTE | 2020-03-09 13:57 | PHYS DOC ---
Past History Past Medical History: A-Fib, Diabetes, Hypothyroid, UTI Past Surgical History: Hysterectomy, Other Alcohol Use: None Drug Use: None General Adult EDM: Chief Complaint: PAIN ON URINATION HPI: HPI: Patient is a 74-year-old female who presents with urgency, dysuria, bilateral flank pain since Tuesday. Patient states "I feel like I am peeing every 15 minutes and not much is coming out". Patient denies taking anything at home for the pain. Patient denies fevers, nausea, vomiting, diarrhea. Review of Systems: Review of Systems: Constitutional: Denies fever or chills Eyes: Denies change in visual acuity HENT: Denies nasal congestion or sore throat Respiratory: Denies cough or shortness of breath Cardiovascular: Denies chest pain or edema GI: Denies abdominal pain, nausea, vomiting, bloody stools or diarrhea : Reports dysuria, frequency Musculoskeletal: Denies back pain or joint pain Integument: Denies rash Neurologic: Denies headache, focal weakness or sensory changes Endocrine: Denies polyuria or polydipsia Lymphatic: Denies swollen glands Psychiatric: Denies depression or anxiety Allergies: Allergies: Allergies Coded Allergies Type Severity Reaction Last Updated Verified doxycycline Allergy Intermediate Unknown 11/03/15 Yes Sulfa (Sulfonamide Antibiotics) Adverse Reaction Intermediate 11/03/15 Yes Physical Exam: PE: Constitutional: Well developed, well nourished, no acute distress, non-toxic appearance. [] HENT: Normocephalic, atraumatic, bilateral external ears normal, oropharynx moist, no oral exudates, nose normal. [] Eyes: PERRLA, EOMI, conjunctiva normal, no discharge. [] Neck: Normal range of motion, no tenderness, supple, no stridor. [] Cardiovascular:Heart rate regular rhythm, no murmur [] Lungs & Thorax: Bilateral breath sounds clear to auscultation [] Abdomen: Bowel sounds normal, soft, no tenderness, no masses, no pulsatile masses. [] Skin: Warm, dry, no erythema, no rash. [] Back: No tenderness, bilateral flank discomfort Extremities: No tenderness, no cyanosis, no clubbing, ROM intact, no edema. [] Neurologic: Alert and oriented X 3, normal motor function, normal sensory function, no focal deficits noted. [] Psychologic: Affect normal, judgement normal, mood normal. [] Current Patient Data: Vital Signs: Vital Signs Date Time Temp Pulse Resp B/P (MAP) Pulse Ox O2 Delivery O2 Flow Rate FiO2 03/09/20 13:15 97.5 96 16 123/67 (85) 96 Room Air EKG: EKG: [] Radiology/Procedures: Radiology/Procedures: [] Heart Score: Risk Factors: Risk Factors: DM, Current or recent (<one month) smoker, HTN, HLP, family history of CAD, obesity. Risk Scores: Score 0 - 3: 2.5% MACE over next 6 weeks - Discharge Home Score 4 - 6: 20.3% MACE over next 6 weeks - Admit for Clinical Observation Score 7 - 10: 72.7% MACE over next 6 weeks - Early Invasive Strategies Course & Med Decision Making: Course & Med Decision Making Pertinent Labs and Imaging studies reviewed. (See chart for details) []Patient is a 74-year-old female who presents with urgency, dysuria, bilateral flank pain since Tuesday. Patient states "I feel like I am peeing every 15 minutes and not much is coming out". Patient denies taking anything at home for the pain. Patient denies fevers, nausea, vomiting, diarrhea. UA positive. Prescribed Keflex and Phenazopyridine. Dragon Disclaimer: [employer] Disclaimer: This electronic medical record was generated, in whole or in part, using a voice recognition dictation system. Departure Departure: Impression: Primary Impression: UTI (urinary tract infection) Qualified Codes: N30.00 - Acute cystitis without hematuria Disposition: 01 DC HOME SELF CARE/HOMELESS Condition: GOOD Referrals: LETICIA RAYA MD (PCP) Patient Instructions: Urinary Frequency Additional Instructions: Emergency room today for urinary frequency, pain. Your your urinary analysis showed positive for infection. I will send you home on antibiotic's and also Phenazopyridine for discomfort. Please increase fluids. Please return to the emergency room with worsening symptoms or concerns. EMERGENCY DEPARTMENT GENERAL DISCHARGE INSTRUCTIONS Thank you for coming to [facility] (ED) today and trusting us with you care. We trust that you had a positivie experience in our Emergency Department. If you wish to speak to the department management, you may call the director at [phone]. YOUR FOLLOW UP INSTRUCTIONS ARE FOLLOWS: 1. Do you have a private Doctor? If you do not have a private doctor, please ask for a resource list of physicians or clinics that may be able to assist you with follow up care. 2. The Emergency Physician has interpreted your x-rays. The X-Ray specialist will also review them. If there is a change in the findings, you will be notified in 48 hours when at all possible. 3. A lab test or culture has been done, your results will be reviewed and you will be notified if you need a change in treatment. ADDITIONAL INSTRUCTIONS AND INFORMATION: 1. Your care today has been supervised by a physician who is specially trained in emergency care. Many problems require more than one evaluation for a complete diagnosis and treatment. We recommend that you schedule your follow up appointment as recommended to ensure complete treatment of you illness or injury. If you are unable to obtain follow up care and continue to have a problem, or if your condition worsens, we recommend that you return to the ED. 2. We are not able to safely determine your condition over the phone nor are we able to give sound medical advice over the phone. For these safety reasons, if you call for medical advice we will ask you to come to the ED for further evaluation. 3. If you have any questions regarding these discharge instructions please call the ED at [phone]. SAFETY INFORMATION: In the interest of safety, wellness, and injury prevention; we encourage you to wear your sealbelt, if you smoke; quite smoking, and we encourage family to use a protective helmet for bicycling and other sporting events that present an increased risk for head injury. IF YOUR SYMPTOMS WORSEN OR NEW SYMPTOMS DEVELOP, OR YOU HAVE CONCERNS ABOUT YOUR CONDITION; OR IF YOUR CONDITION WORSENS WHILE YOU ARE WAITING FOR YOUR FOLLOW UP APPOINTMENT; EITHER CONTACT YOUR PRIMARY CARE DOCTOR, THE PHYSICIAN WHOSE NAME AND NUMBER YOU WERE GIVEN, OR RETURN TO THE ED IMMEDIATELY. Scripts Phenazopyridine Hcl (PHENAZOPYRIDINE HCL) 200 Mg Tablet 200 MG PO TID for dysuria for 2 Days, #6 TAB Prov: MAXIME QUINONEZ APRN 03/09/20 Cephalexin (CEPHALEXIN) 500 Mg Tablet 500 MG PO BID for uti for 7 Days, #14 TAB Prov: MAXIME QUINONEZ APRN 03/09/20 MAXIME QUINONEZ APRN Mar 09, 2020 13:57
[2020-03-09] MEDS ORDERED: CEPH500T PO (14:22)
[2020-03-09] MEDS ORDERED: PHEN-444 PO (14:24)
[2020-03-09 15:22] LABS: CLARITY,URINE HAZY; COLOR,URINE YELLOW
[2020-03-09 15:23] LABS: BILIRUBIN,URINE NEG (NEG); GLUCOSE,URINE 100 mg/dL (NEG)
[2020-03-09 15:24] LABS: BACTERIA,URINE FEW /HPF (0-FEW); NITRITE,URINE NEG (NEG); RBC,URINE OCC /HPF (0-2); SQUAMOUS EPITHELIAL CELL,UR MOD /LPF; UROBILINOGEN,URINE 0.2 mg/dL (0.2 mg/dL); WBC,URINE 20-40 /HPF (0-4)
== END 2020-03-09 14:45 | disposition home or self-care (01) ==
LOC: ER 13:11
DX: N30.00 Acute cystitis without hematuria (principal); I48.91 Unspecified atrial fibrillation; E11.9 Type 2 diabetes mellitus without complications; E03.9 Hypothyroidism, unspecified; Z87.440 Personal history of urinary (tract) infections; Z90.710 Acquired absence of both cervix and uterus; Z88.1 Allergy status to other antibiotic agents; Z88.2 Allergy status to sulfonamides
CPT/HCPCS: 81001; 87086; 99283

== ENCOUNTER → 2020-04-14 | Outpatient (CLI) | payer MEDICARE, OTHER ==
[~2020-04-14] MED LIST changes: +CEPH500T PO; +PHEN-444 PO
[2020-04-14 13:26] LABS: BASO # 0.1 x10^3/uL (0.0-0.2); BASO % 1 % (0-3); EOS # 0.2 x10^3/uL (0.0-0.7); EOS % 2 % (0-3); HEMATOCRIT 45.7 % (36.0-47.0); HEMOGLOBIN 15.1 g/dL (12.0-15.5); LYMPH # 2.8 x10^3/uL (1.0-4.8); LYMPH % 34 % (24-48); MEAN CORPUSCULAR HEMOGLOBIN 29 pg (25-35); MEAN CORPUSCULAR HGB CONC 33 g/dL (31-37); MEAN CORPUSCULAR VOLUME 89 fL (79-100); MONO # 0.5 x10^3/uL (0.0-1.1); MONO % 6 % (0-9); NEUT # 4.8 x10^3uL (1.8-7.7); NEUT % 58 % (31-73); PLATELET COUNT 340 x10^3/uL (140-400); RED BLOOD COUNT 5.14 x10^6/uL (3.50-5.40); RED CELL DISTRIBUTION WIDTH 13.8 % (11.5-14.5); WHITE BLOOD COUNT 8.2 x10^3/uL (4.0-11.0)
[2020-04-14 13:40] LABS: ALBUMIN 3.5 g/dL (3.4-5.0); C REACTIVE PROTEIN 2.3 mg/L (0-3.3); CALCIUM 8.9 mg/dL (8.5-10.1); CREATININE 0.7 mg/dL (0.6-1.0); GFR 82.3; POTASSIUM 3.8 mmol/L (3.5-5.1); TOTAL BILIRUBIN 0.5 mg/dL (0.2-1.0); TOTAL PROTEIN 6.9 g/dL (6.4-8.2)
[2020-04-15 00:11] LABS: ESTRADIOL LEVEL 52.6 pg/mL (.); FSH 8.1 mIU/mL (.); TESTOSTERONE TOTAL 11 ng/dL (3-41)
[2020-04-15 01:11] LABS: HEMOGLOBIN A1C 6.1 % (4.8-5.6)
[2020-04-15 21:41] LABS: FREE T4 1.1 ng/dL (0.76-1.46); THYROID STIM HORMONE (TSH) 1.105 uIU/mL (0.358-3.740)
[2020-04-16 10:10] LABS: PROGESTERONE 1.9 ng/mL (.)
== END ==
LOC: LAB 11:08
PROVIDERS: ATTEND Family Medicine
DX: E28.39 Other primary ovarian failure (principal); E34.9 Endocrine disorder, unspecified; E03.9 Hypothyroidism, unspecified; E27.40 Unspecified adrenocortical insufficiency; R53.83 Other fatigue; E78.5 Hyperlipidemia, unspecified; N95.1 Menopausal and female climacteric states; E88.81 Metabolic syndrome and other insulin resistance; E55.9 Vitamin D deficiency, unspecified; E53.8 Deficiency of other specified B group vitamins; I48.91 Unspecified atrial fibrillation; Z79.899 Other long term (current) drug therapy
CPT/HCPCS: 80053; 80061; 82306; 82607; 82627; 82670; 83001; 83036; 83698; 84144; 84403; 84439; 84443; 84481; 85025; 86140

== ENCOUNTER → 2020-08-26 | Outpatient (CLI) | payer MEDICARE, OTHER | LOC: LAB 07:41 | PROVIDERS: ATTEND Internal Medicine Cardiovascular Disease | DX: E78.2 Mixed hyperlipidemia (principal) | CPT/HCPCS: 36415; 85651 ==

== ENCOUNTER → 2020-10-09 | Outpatient (CLI) | payer MEDICARE, OTHER ==
[2020-10-09 10:46] LABS: BASO # 0.1 x10^3/uL (0.0-0.2); BASO % 1 % (0-3); EOS # 0.2 x10^3/uL (0.0-0.7); EOS % 2 % (0-3); HEMATOCRIT 46.1 % (36.0-47.0); HEMOGLOBIN 15.6 g/dL (12.0-15.5); LYMPH # 3.3 x10^3/uL (1.0-4.8); LYMPH % 42 % (24-48); MEAN CORPUSCULAR HEMOGLOBIN 29 pg (25-35); MEAN CORPUSCULAR HGB CONC 34 g/dL (31-37); MEAN CORPUSCULAR VOLUME 86 fL (79-100); MONO # 0.5 x10^3/uL (0.0-1.1); MONO % 6 % (0-9); NEUT # 3.9 x10^3uL (1.8-7.7); NEUT % 49 % (31-73); PLATELET COUNT 318 x10^3/uL (140-400); RED BLOOD COUNT 5.35 x10^6/uL (3.50-5.40); RED CELL DISTRIBUTION WIDTH 13.1 % (11.5-14.5); WHITE BLOOD COUNT 7.9 x10^3/uL (4.0-11.0)
[2020-10-09 10:49] LABS: ALBUMIN 3.5 g/dL (3.4-5.0); DIRECT BILIRUBIN 0.1 mg/dL (0.0-0.2); TOTAL BILIRUBIN 0.4 mg/dL (0.2-1.0); TOTAL PROTEIN 6.9 g/dL (6.4-8.2)
[2020-10-09 23:07] LABS: TESTOSTERONE TOTAL 19 ng/dL (3-67)
[2020-10-10 00:07] LABS: DHEA SO4 38.9 ug/dL (20.4-186.6); FSH 12.4 mIU/mL (.); HEMOGLOBIN A1C 6.1 % (4.8-5.6); PROGESTERONE 2.8 ng/mL (.)
[2020-10-10 15:47] LABS: FREE T4 1.12 ng/dL (0.76-1.46); THYROID STIM HORMONE (TSH) 1.969 uIU/mL (0.358-3.740)
[2020-10-11 21:06] LABS: INSULIN GROWTH FAC 97 ng/mL (48-191)
== END ==
LOC: LAB 09:29
PROVIDERS: ATTEND Family Medicine
DX: E03.9 Hypothyroidism, unspecified (principal); E34.9 Endocrine disorder, unspecified; E28.39 Other primary ovarian failure; R53.83 Other fatigue; E78.5 Hyperlipidemia, unspecified; N95.1 Menopausal and female climacteric states; Z90.710 Acquired absence of both cervix and uterus; E88.81 Metabolic syndrome and other insulin resistance; E55.9 Vitamin D deficiency, unspecified; E53.8 Deficiency of other specified B group vitamins; E27.40 Unspecified adrenocortical insufficiency; E11.9 Type 2 diabetes mellitus without complications
CPT/HCPCS: 36415; 80061; 80076; 82607; 82627; 82670; 83001; 83036; 84144; 84305; 84403; 84439; 84443; 84481; 85025

== ENCOUNTER → 2021-04-13 | Outpatient (CLI) | payer MEDICARE, OTHER ==
[2021-04-13 09:56] LABS: BASO % 1 % (0-3); EOS # 0.2 x10^3/uL (0.0-0.7); EOS % 3 % (0-3); HEMATOCRIT 46.2 % (36.0-47.0); HEMOGLOBIN 15.3 g/dL (12.0-15.5); LYMPH # 2.8 x10^3/uL (1.0-4.8); LYMPH % 41 % (24-48); MEAN CORPUSCULAR HEMOGLOBIN 29 pg (25-35); MEAN CORPUSCULAR HGB CONC 33 g/dL (31-37); MEAN CORPUSCULAR VOLUME 86 fL (79-100); MONO # 0.4 x10^3/uL (0.0-1.1); MONO % 6 % (0-9); NEUT # 3.4 x10^3uL (1.8-7.7); NEUT % 49 % (31-73); PLATELET COUNT 314 x10^3/uL (140-400); RED BLOOD COUNT 5.38 x10^6/uL (3.50-5.40)
[2021-04-13 10:08] LABS: ALBUMIN 3.7 g/dL (3.4-5.0); ALBUMIN/GLOBULIN RATIO 1.1 (1.0-1.7); C REACTIVE PROTEIN 1.2 mg/L (0-3.3); CALCIUM 9.1 mg/dL (8.5-10.1); CREATININE 0.7 mg/dL (0.6-1.0); POTASSIUM 3.8 mmol/L (3.5-5.1); TOTAL BILIRUBIN 0.5 mg/dL (0.2-1.0); TOTAL PROTEIN 7.1 g/dL (6.4-8.2)
[2021-04-13 15:24] LABS: CHOLESTEROL/HDL RATIO 5.2; THYROID STIM HORMONE (TSH) 1.861 uIU/mL (0.358-3.740)
[2021-04-13 22:07] LABS: ESTRADIOL LEVEL 22.5 pg/mL (.); PROGESTERONE 2.8 ng/mL (.); TESTOSTERONE TOTAL 10 ng/dL (3-67)
[2021-04-15 06:08] LABS: INSULIN GROWTH FAC 101 ng/mL (48-191)
== END ==
LOC: LAB 08:41
PROVIDERS: ATTEND Family Medicine
DX: E03.9 Hypothyroidism, unspecified (principal); E28.39 Other primary ovarian failure; E34.9 Endocrine disorder, unspecified; E27.40 Unspecified adrenocortical insufficiency; R53.83 Other fatigue; E78.5 Hyperlipidemia, unspecified; N95.1 Menopausal and female climacteric states; E55.9 Vitamin D deficiency, unspecified; E53.8 Deficiency of other specified B group vitamins; Z90.710 Acquired absence of both cervix and uterus
CPT/HCPCS: 36415; 80053; 80061; 82306; 82607; 82670; 83698; 84144; 84305; 84403; 84443; 84481; 85025; 86140

== ENCOUNTER → 2021-07-01 | Outpatient (CLI) | payer MEDICARE, OTHER ==
[2021-07-01 09:29] LABS: ALBUMIN 3.4 g/dL (3.4-5.0); CALCIUM 9.3 mg/dL (8.5-10.1); CREATININE 0.8 mg/dL (0.6-1.0); GFR 70.3; POTASSIUM 4.1 mmol/L (3.5-5.1); TOTAL BILIRUBIN 0.5 mg/dL (0.2-1.0); TOTAL PROTEIN 6.7 g/dL (6.4-8.2)
[2021-07-01 18:03] LABS: CHOLESTEROL/HDL RATIO 2.7
== END ==
LOC: LAB 08:21
PROVIDERS: ATTEND Nurse Practitioner Adult Health
DX: I11.0 Hypertensive heart disease with heart failure (principal); E78.2 Mixed hyperlipidemia; I50.9 Heart failure, unspecified
CPT/HCPCS: 36415; 80053; 80061

== ENCOUNTER → 2021-07-02 | Outpatient (CLI) | payer MEDICARE, OTHER ==
[2021-07-02 12:59] LABS: BASO % 1 % (0-3); EOS # 0.2 x10^3/uL (0.0-0.7); EOS % 3 % (0-3); HEMATOCRIT 45.7 % (36.0-47.0); HEMOGLOBIN 15.5 g/dL (12.0-15.5); LYMPH % 42 % (24-48); MEAN CORPUSCULAR HEMOGLOBIN 29 pg (25-35); MEAN CORPUSCULAR HGB CONC 34 g/dL (31-37); MEAN CORPUSCULAR VOLUME 86 fL (79-100); MONO # 0.4 x10^3/uL (0.0-1.1); MONO % 6 % (0-9); NEUT # 3.5 x10^3uL (1.8-7.7); NEUT % 49 % (31-73); PLATELET COUNT 298 x10^3/uL (140-400); RED BLOOD COUNT 5.32 x10^6/uL (3.50-5.40); RED CELL DISTRIBUTION WIDTH 13.2 % (11.5-14.5); WHITE BLOOD COUNT 7.1 x10^3/uL (4.0-11.0)
[2021-07-03 00:08] LABS: ESTRADIOL LEVEL 78.5 pg/mL (.); PROGESTERONE 3.6 ng/mL (.); TESTOSTERONE TOTAL 70 ng/dL (3-67)
[2021-07-03 11:15] LABS: INSULIN LEVEL 6.4 uIU/mL (2.6-24.9)
== END ==
LOC: LAB 11:30
PROVIDERS: ATTEND Family Medicine
DX: E28.39 Other primary ovarian failure (principal); E34.9 Endocrine disorder, unspecified; N95.1 Menopausal and female climacteric states; E78.5 Hyperlipidemia, unspecified; E88.81 Metabolic syndrome and other insulin resistance; Z90.710 Acquired absence of both cervix and uterus
CPT/HCPCS: 36415; 80061; 82670; 82947; 83525; 83698; 84144; 84403; 85025